=== PATIENT | female | born 1995 | race Two or more races ===

== ENCOUNTER → 2025-05-08 | Outpatient (REF) | payer OTHER | LOC: M SFHCWAGY 17:23 | PROVIDERS: ATTEND Nurse Practitioner Family | DX: Z36.89 Encounter for other specified antenatal screening (principal); Z3A.35 35 weeks gestation of pregnancy ==

== ENCOUNTER → 2025-05-10 | Outpatient (CLI) | payer OTHER ==
[2025-05-10 11:00] LABS: PLATELET COUNT, AUTOMATED 318 10^3/uL (150-450)
[2025-05-10 11:13] LABS: GLUCOSE CHALLENGE TEST 1 HOUR 121 MG/DL (LESS THAN 140)
[2025-05-10 12:05] LABS: HIV 1&2 SCREEN NEGATIVE (NEGATIVE)
[2025-05-10 12:13] LABS: HEPATITIS C VIRUS ABY INDEX < 0.02 INDEX (<0.8)
[2025-05-10 12:21] LABS: Trichomonas vaginalis (AMP) NOT DETECTED (NEGATIVE)
[2025-05-10 12:44] LABS: GC DNA AMPLIFICATION NEGATIVE (NEGATIVE)
== END ==
LOC: M PLALAB 07:55
PROVIDERS: ATTEND Nurse Practitioner Family
DX: Z34.80 Encounter for supervision of other normal pregnancy, unspecified trimester (principal)

== ENCOUNTER 2025-05-31 15:38 | Outpatient (CLI) | payer OTHER ==
[~2025-05-31] VITALS: Ht 154.9 cm; Wt 104.8 kg
[2025-05-31] MEDS ORDERED: TUMS500C PO (15:50)
[2025-05-31] MEDS ORDERED: HOME MED LIST COMPLETE! XX SCH (15:55)
[2025-05-31 15:59] VITALS: BP 134/83
[2025-05-31 16:15] VITALS: BP 134/76
[2025-05-31 16:23] VITALS: TEMP 97.6
[2025-05-31 16:27] LABS: PLATELET COUNT, AUTOMATED 321 10^3/uL (150-450)
[2025-05-31 16:31] VITALS: BP 134/85
[2025-05-31 16:49] LABS: TOTAL PROTEIN,RANDOM URINE 53.6 MG/DL (0.0-14.0)
[2025-05-31 16:54] LABS: ALT/SGPT < 9 U/L (7.0-40); AST/SGOT 12 U/L (<34); CREATININE FOR GFR 0.53 MG/DL (0.55-1.30); GLOMERULAR FILTRATION RATE > 90.0 (>60)
[2025-05-31 16:55] LABS: LDH LACTATE DEHYDROGENASE 162 U/L (120-246)
== END 2025-05-31 17:50 | disposition home or self-care (01) ==
LOC: M LDO 15:38
PROVIDERS: ATTEND Specialist
DX: O14.93 Unspecified pre-eclampsia, third trimester (principal); Z3A.39 39 weeks gestation of pregnancy; Z88.1 Allergy status to other antibiotic agents; Z91.018 Allergy to other foods
CPT/HCPCS: 36415; 59025; 82247; 82570; 83615; 84156; 84450; 84460; 84550; 85027; G0463

== ENCOUNTER 2025-06-01 08:57 | Inpatient (IN) | payer OTHER ==
[~2025-06-01] VITALS: Ht 154.9 cm; Wt 103.0 kg
[2025-06-01] VITALS (23 sets, daily range): BP systolic 106–156; BP diastolic 56–90
[~2025-06-01 08:57] MED LIST: TUMS500C PO
[2025-06-01] MEDS ORDERED: TRANEXAMIC ACID INJection 1,000 MG in NS 100 ML IV PRN (10:25)
[2025-06-01] MEDS ORDERED: CARBOPROST TROMETHAMINE 250 MCG/ML AMP IM PRN (10:25)
[2025-06-01] MEDS ORDERED: LIDOCAINE 1% MDV 20 ML VIAL INFIL PRN (10:25)
[2025-06-01 10:58] LABS: PLATELET COUNT, AUTOMATED 318 10^3/uL (150-450)
[2025-06-01] MEDS: miSOPROStol 50 MCG 1/2 TABLET PO SCH (11:11)
[2025-06-01 11:30] LABS: HEPATITIS B SURFACE ANTIBODY NEGATIVE (POSITIVE)
[2025-06-01 11:56] LABS: HIV 1&2 SCREEN NEGATIVE (NEGATIVE)
[2025-06-01 12:04] LABS: HEPATITIS C VIRUS ABY INDEX < 0.02 INDEX (<0.8)
[2025-06-01] MEDS ORDERED: EPIDURAL/PCA KEYS XX PRN (20:00)
[2025-06-01] MEDS ORDERED: NALOXONE INJ 0.4 MG/1 ML VIAL IV PRN (20:00)
[2025-06-01] MEDS ORDERED: LR 500 ML IV PRN (20:00)
[2025-06-01] MEDS ORDERED: diphenhydrAMINE 50 MG/ML VIAL IV PRN (20:00)
[2025-06-01] MEDS ORDERED: FENTANYL 2 MCG/ML ROPIVACAINE 0.2% IN 0.9% NACL 100 ML IVBAG As Ordered ONE (20:04)
[2025-06-01] MEDS: FENTANYL/ROPIVACAINE/NACL BAG 100 ML EPIDURAL SCH (20:07)
[2025-06-01] MEDS: OXYTOCIN DRIP 30 UNITS in IV 1 EA IV SCH (22:39)
[2025-06-01] MEDS: LR 1,000 ML IV SCH (22:39)
[2025-06-02] VITALS (10 sets, daily range): BP systolic 103–144; BP diastolic 57–76; O2SAT 81–99
[2025-06-02] MEDS: ONDANSETRON 4MG 2ML VIAL IV PRN (00:44)
[2025-06-02] MEDS: OXYTOCIN DRIP 30 UNITS in IV 1 EA IV PRN (01:15)
[2025-06-02] MEDS ORDERED: CALCIUM CARBONATE 500 MG CHEW U/D PO PRN (01:45)
[2025-06-02] MEDS ORDERED: ACETAMINOPHEN 500 MG TAB PO PRN (01:45)
[2025-06-02] MEDS ORDERED: ACETAMINOPHEN 325 MG TAB PO PRN (01:45)
[2025-06-02] MEDS ORDERED: RHOGAM 300MCG (1500IU) INJ IM SCH (01:45)
[2025-06-02] MEDS ORDERED: MOM 30 ML SUSPENSION UDC PO PRN (01:45)
[2025-06-02] MEDS ORDERED: ANUSOL HC CREAM 30 GM TOP PRN (01:45)
[2025-06-02] MEDS ORDERED: DIBUCAINE 1% OINTMENT 30 GM TOP PRN (01:45)
[2025-06-02] MEDS ORDERED: METHYLERGONOVINE MALEATE 0.2 MG TAB PO PRN (01:45)
[2025-06-02] MEDS: PRENATAL VITAMINS CHEWABLE TABLET PO SCH (08:00)
[2025-06-02] MEDS: IBUPROFEN 600 MG TAB PO PRN (08:02)
[2025-06-02] MEDS: DOCUSATE SODIUM 100 MG CAPSULE PO PRN (16:47)
[2025-06-02] MEDS: IBUPROFEN 800 MG TAB PO PRN (16:47)
[2025-06-03 06:00] VITALS: BP 129/74; O2SAT 86
[2025-06-03] MEDS: FLUZONE VACCINE TRI PF(25-26) 0.5ML SYRINGE IM.IMMUN ONE (09:41)
[2025-06-03] MEDS: MEASLES,MUMPS,RUBELLA VACCINE INJ (MMR-II) SC.IMMUN ONE (10:25)
== END 2025-06-03 15:15 | disposition home or self-care (01) | DRG 807 ==
LOC: M LDI 08:57 → M OBS 06-02 03:27
PROVIDERS: ADMIT Advanced Practice Midwife; ATTEND Advanced Practice Midwife
PROC: 3E0P7GC Introduction of Other Therapeutic Substance into Female Reproductive, Via Natural or Artificial Opening (ICD-10-PCS; 2025-06-01)
PROC: 10907ZC Drainage of Amniotic Fluid, Therapeutic from Products of Conception, Via Natural or Artificial Opening (ICD-10-PCS; 2025-06-01)
PROC: 10E0XZZ Delivery of Products of Conception, External Approach (ICD-10-PCS; principal; 2025-06-02)
DX: O14.94 Unspecified pre-eclampsia, complicating childbirth (principal); Z37.0 Single live birth; Z3A.39 39 weeks gestation of pregnancy; Z88.0 Allergy status to penicillin; Z88.8 Allergy status to other drugs, medicaments and biological substances; Z91.018 Allergy to other foods; O32.6XX0 Maternal care for compound presentation, not applicable or unspecified